=== PATIENT | female | born 1975 | race Caucasian/White ===

== ENCOUNTER 2017-02-07 20:01 | Emergency (ER) | payer BC, OTHER ==
[~2017-02-07] VITALS: Ht 180.3 cm; Wt 104.3 kg
[~2017-02-07 20:01] MED LIST: DULO30CA PO; FLUO20CA25 PO; LORA1TAB PO
[2017-02-07] MEDS ORDERED: ASPIRIN 81 MG CHEW (CHILDREN'S ASA) PO ONE (20:30)
[2017-02-07] MEDS ORDERED: RX-NITROGLYCERIN 0.4 MG TAB BTL 25'S SL ONE (20:30)
[2017-02-07 20:34] LABS: BASOPHILS % (AUTO) 1 % (0-10); EOSINOPHILS # (AUTO) 0.1 10^3/uL (0.0-0.3); EOSINOPHILS % (AUTO) 2 % (0-10); LYMPHOCYTES # (AUTO) 2.8 X 10^3 (1.0-4.0); LYMPHOCYTES % (AUTO) 43 % (12-44); MEAN CORPUSCULAR HEMOGLOBIN 28 PG (25-34); MEAN CORPUSCULAR HGB CONC 33 G/DL (32-36); MEAN CORPUSCULAR VOLUME 85 FL (80-99); MEAN PLATELET VOLUME 11.4 FL (7.4-10.4); MONOCYTES # (AUTO) 0.7 X 10^3 (0.0-1.0); MONOCYTES % (AUTO) 11 % (0-12); NEUTROPHILS # (AUTO) 2.8 X 10^3 (1.8-7.8); NEUTROPHILS % (AUTO) 43 % (42-75); PLATELET COUNT 258 10^3/uL (130-400); RED BLOOD COUNT 5.13 10^6/uL (4.35-5.85); RED CELL DISTRIBUTION WIDTH 13.4 % (10.0-14.5); WHITE BLOOD COUNT 6.5 10^3/uL (4.3-11.0)
[2017-02-07 20:47] LABS: PROTHROMBIN TIME PATIENT 13.3 SEC (12.2-14.7)
[2017-02-07 20:58] LABS: ALANINE AMINOTRANSFERASE 71 U/L (0-55); ALBUMIN 4.5 G/DL (3.2-4.5); ANION GAP 14 MMOL/L (5-14); ASPARTATE AMINO TRANSFERASE 64 U/L (5-34); BILIRUBIN,TOTAL 0.7 MG/DL (0.1-1.0); BLOOD UREA NITROGEN 11 MG/DL (7-18); BUN/CREATININE RATIO 13; CALCIUM 9.7 MG/DL (8.5-10.1); CARBON DIOXIDE 23 MMOL/L (21-32); CHLORIDE 104 MMOL/L (98-107); CREATININE SERUM 0.88 MG/DL (0.60-1.30); GFR ESTIMATED > 60; GLUCOSE 95 MG/DL (70-105); POTASSIUM 3.7 MMOL/L (3.6-5.0); SODIUM 141 MMOL/L (135-145); TOTAL PROTEIN 8.1 G/DL (6.4-8.2)
--- NOTE | 2017-02-07 20:59 | Diagnostic Imaging Report ---
INDICATION: Left arm pain and chest pain. EXAMINATION: Frontal chest was obtained at 8:47 p.m. FINDINGS: Heart and mediastinal silhouette are normal in appearance. The lungs are clear. There is no pneumothorax or pleural fluid. IMPRESSION: Negative chest. Dictated by: Dictated on workstation # [id number]
[2017-02-07 21:04] LABS: MYOGLOBIN SERUM 24.7 NG/ML (10.0-92.0)
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
[2017-02-08 01:37] VITALS: BP 131/95
== END 2017-02-08 01:37 | disposition home or self-care (01) ==
LOC: EDUNIT# 20:01 → ER 20:03
DX: M79.602 Pain in left arm (principal); R74.0 Nonspecific elevation of levels of transaminase and lactic acid dehydrogenase [LDH]; F41.9 Anxiety disorder, unspecified
CPT/HCPCS: 36415; 71010; 80053; 83735; 83874; 84484; 85025; 85610; 85730; 93005; 93041

== ENCOUNTER → 2017-03-01 | Outpatient (CLI) | payer BC ==
--- NOTE | 2017-03-01 14:42 | ECHOCARDIOGRAPHY REPORT ---
DATE OF SERVICE: 03/01/2017 PRIMARY PHYSICIAN: Ernie Cha MD DIAGNOSIS: Chest pain. FINDINGS: 1. Sinus rhythm. 2. Left atrial dimensions are normal. 3. Aortic root dimensions are normal. 4. Left ventricular systolic function is normal. Left ventricular ejection fraction is 55 to 60%. No LVH is present. 5. There is no wall motion abnormality. 6. Normal right heart dimensions. Normal RV systolic function. 7. No evidence of pericardial effusion. 8. Normal diastolic function. 9. Normal IVC. VALVULAR STRUCTURE OF THE HEART: Mild tricuspid regurgitation with RVSP of 17 mmHg. Normal aortic valve with no regurgitation or stenosis. Normal mitral valve with no significant regurgitation or stenosis. Mild to moderate pulmonic regurgitation. CONCLUSION: 1. LV and RV size and function is normal. 2. LVEF is 55 to 60%. 3. Normal PA pressure. 4. Mild to moderate pulmonic regurgitation. Job ID: [id number] DocumentID: [id number] Dictated Date: 03/01/2017 10:48:38 [employer] Agent Date: 03/01/2017 14:05:55 Dictated By: LOLY PARKER MD
== END ==
LOC: CARD 08:21
PROVIDERS: ATTEND Internal Medicine Interventional Cardiology
DX: R07.9 Chest pain, unspecified (principal)
CPT/HCPCS: 93017; 93306

== ENCOUNTER → 2018-02-25 | Outpatient (CLI) | payer BC ==
[~2018-02-25] MED LIST changes: +CEFD300C3 PO; +PHEN-640 PO
--- NOTE | 2018-02-25 15:32 | Diagnostic Imaging Report ---
INDICATION: Routine screening. COMPARISON: 11/24/2011. TECHNIQUE: Bilateral CC and MLO 3D mammography was performed. The current study was also evaluated with a Computer Aided Detection (CAD) system. FINDINGS: Scattered fibroglandular densities are identified bilaterally. No discrete mass or malignant appearing microcalcifications are identified. The axillae are unremarkable. IMPRESSION: No mammographic features suspicious for malignancy are identified. ACR BI-RADS Category 1: Negative. Result letter will be mailed to the patient. Note: At least 10% of breast cancer is not imaged by mammography. Dictated by: Dictated on workstation # [id number]
== END ==
LOC: RAD 09:57
PROVIDERS: ATTEND Family Medicine
DX: Z12.31 Encounter for screening mammogram for malignant neoplasm of breast (principal)
CPT/HCPCS: 77067

== ENCOUNTER 2020-04-03 21:32 | Emergency (ER) | payer SELFPAY ==
[~2020-04-03] VITALS: Ht 177 cm; Wt 113.0 kg
[2020-04-03] MEDS ORDERED: ACETAMINOPHEN 500 MG TAB (TYLENOL) PO ONE (22:15)
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
[2020-04-03 23:08] VITALS: BP 131/85
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
--- NOTE | 2020-04-04 08:31 | Diagnostic Imaging Report ---
INDICATION: Pain. 3 views of the right wrist were obtained. FINDINGS: The alignment is normal. There is no fracture or dislocation. Soft tissues are unremarkable. IMPRESSION: No acute fracture or dislocation. Dictated by: Dictated on workstation # [id number]
== END 2020-04-03 23:17 | disposition home or self-care (01) ==
LOC: EDUNIT# 21:32 → ER 21:33
DX: S20.219A Contusion of unspecified front wall of thorax, initial encounter (principal); S63.501A Unspecified sprain of right wrist, initial encounter; F41.9 Anxiety disorder, unspecified; F32.9 Major depressive disorder, single episode, unspecified; R40.2142 Coma scale, eyes open, spontaneous, at arrival to emergency department; R40.2252 Coma scale, best verbal response, oriented, at arrival to emergency department; R40.2362 Coma scale, best motor response, obeys commands, at arrival to emergency department; V86.09XA Driver of other special all-terrain or other off-road motor vehicle injured in traffic accident, initial encounter
CPT/HCPCS: 71046; 73110; 93005

== ENCOUNTER 2020-12-16 21:57 | Emergency (ER) | payer OTHER ==
[~2020-12-16] VITALS: Ht 180.3 cm; Wt 108.0 kg
[2020-12-16] MEDS ORDERED: KETOROLAC 30 MG/ML VIAL IVP STA (22:13)
[2020-12-16 22:26] LABS: BASOPHILS # (AUTO) 0.1 10^3/uL (0.0-0.1); BASOPHILS % (AUTO) 1 % (0-10); EOSINOPHILS # (AUTO) 0.3 10^3/uL (0.0-0.3); EOSINOPHILS % (AUTO) 3 % (0-10); HEMATOCRIT 44 % (35-52); HEMOGLOBIN 14.3 g/dL (11.5-16.0); LYMPHOCYTES # (AUTO) 2.6 10^3/uL (1.0-4.0); LYMPHOCYTES % (AUTO) 34 % (12-44); MEAN CORPUSCULAR HEMOGLOBIN 28 pg (25-34); MEAN CORPUSCULAR HGB CONC 33 g/dL (32-36); MEAN CORPUSCULAR VOLUME 86 fL (80-99); MEAN PLATELET VOLUME 11.5 fL (9.0-12.2); MONOCYTES # (AUTO) 0.6 10^3/uL (0.0-1.0); MONOCYTES % (AUTO) 8 % (0-12); NEUTROPHILS # (AUTO) 4.2 10^3/uL (1.8-7.8); NEUTROPHILS % (AUTO) 55 % (42-75); PLATELET COUNT 277 10^3/uL (130-400); WHITE BLOOD COUNT 7.7 10^3/uL (4.3-11.0)
[2020-12-16] MEDS ORDERED: CIPROFLOXACIN IV 400MG/200ML 200 ML IV ONE (22:30)
[2020-12-16 22:34] LABS: CHLORIDE 105 MMOL/L (98-107); SODIUM 138 MMOL/L (135-145)
[2020-12-16 22:35] LABS: ALBUMIN 4.4 GM/DL (3.2-4.5)
[2020-12-16 22:37] LABS: TOTAL PROTEIN 8.1 GM/DL (6.4-8.2)
[2020-12-16 22:38] LABS: CARBON DIOXIDE 22 MMOL/L (21-32); GLUCOSE 115 MG/DL (70-105)
[2020-12-16 22:39] LABS: BILIRUBIN,TOTAL 0.3 MG/DL (0.1-1.0)
[2020-12-16 22:41] LABS: ALKALINE PHOSPHATASE 165 U/L (40-136)
[2020-12-16 22:42] LABS: CREATININE SERUM 0.94 MG/DL (0.60-1.30); GFR ESTIMATED > 60
[2020-12-16 22:43] LABS: BUN/CREATININE RATIO 11
[2020-12-16 22:44] LABS: ALANINE AMINOTRANSFERASE 38 U/L (0-55)
--- NOTE | 2020-12-16 22:51 | ED EENT ---
History of Present Illness General Chief Complaint: Ear Problems Stated Complaint: DX CELLULITIS R EAR / PAIN Source: patient History of Present Illness Date Seen by Provider: Dec 16, 2020 Time Seen by Provider: 22:08 Initial Comments PT ARRIVES VIA POV FROM HOME C/O RIGHT EAR PAIN X 1 WEEK EXTERNAL EAR IS RED AND SWOLLEN AND HAS PAIN BEHIND RIGHT EAR WELL. NO FEVER NO DRAINAGE FROM EAR NO URI SYMPTOMS NO INJURY OR RECENT PIERCING NO HISTORY OF SIMILAR PT IS NOT DIABETIC NO RECENT SWIMMING, ETC. SEEN AT [facility] ON Sunday12/14/20 FOR THIS PROBLEM AND GIVEN RX FOR BACTRIM AND CIPRO OTIC DROPS. WAS TOLD IF NOT BETTER IN 24 HOURS SHE NEEDED TO GO TO ER, SO ARRIVES IN ER TONIGHT. SYMPTOMS ARE GETTING WORSE, NO IMPROVEMENT ON ANTIBIOTICS. LMP 11/22/20 PCP: DR. HOBSON. ALSO GOES TO [facility] Allergies and Home Medications Allergies Coded Allergies: codeine (Verified Allergy, Unknown, 12/16/20) Home Medications Cefdinir 300 Mg Capsule, 300 MG PO BID Prescribed by: ASHLEY MORRIS on 10/01/172237 Ciprofloxacin HCl 750 Mg Tablet, 750 MG PO BID Prescribed by: MAURICE LEE on 12/16/20 2347 Duloxetine Hcl 30 Mg Capsule.dr, 30 MG PO DAILY, (Reported) Fluoxetine Hcl 20 Mg Capsule, 20 MG PO DAILY, (Reported) Ketorolac Tromethamine 10 Mg Tablet, 10 MG PO Q6H Prescribed by: MAURICE LEE on 12/16/20 2351 Lorazepam 1 Mg Tablet, 1 MG PO TID PRN, (Reported) PRN FOR ANXIETY Phenazopyridine HCl 200 Mg Tablet, 1 TAB PO Q8H PRN for SPASMS Prescribed by: ASHLEY MORRIS on 10/01/172237 Patient Home Medication List Home Medication List Reviewed: Yes Review of Systems Review of Systems Constitutional: no symptoms reported; No chills, No fever Eyes: No Symptoms Reported Ears: See HPI, Pain Nose: no symptoms reported; denies congestion Mouth: no symptoms reported Throat: no symptoms reported Respiratory: no symptoms reported Cardiovascular: no symptoms reported Gastrointestinal: no symptoms reported Musculoskeletal: no symptoms reported Skin: see HPI Neurological: No Symptoms Reported Hematologic/Lymphatic: No Symptoms Reported Immunological/Allergic: no symptoms reported Past Htpxcbf-Nvhtan-Urviac Hx Past Med/Social Hx: Reviewed and Corrections made Patient Social History Alcohol Use: Denies Use Drug of Choice: DENIES Smoking Status: Never a Smoker 2nd Hand Smoke Exposure: No Recent Hopitalizations: No Immunizations Up To Date Tetanus Booster (TDap): Unknown Date of Influenza Vaccine: Oct 29, 2012 Seasonal Allergies Seasonal Allergies: No Past Medical History Surgeries: Yes (PYELOPLASTY LEFT KIDNEY; X 2) Section, Gallbladder, Renal Respiratory: No Cardiac: No Neurological: No Reproductive Disorders: No Female Reproductive Disorders: Denies Sexually Transmitted Disease: No HIV/AIDS: No Genitourinary: Yes (S/P LEFT PYELOPLASTY) UTI (peds) Gastrointestinal: Yes (S/P CHOLECYSTECTOMY) Gall Bladder Disease Musculoskeletal: No Endocrine: No HEENT: No Cancer: No Psychosocial: Yes Anxiety, Depression Integumentary: No Blood Disorders: No Adverse Reaction/Blood Tranf: No Family Medical History No Pertinent Family Hx Physical Exam Vital Signs Vital Signs - First Documented 12/16/20 22:07 Temp 36.4 Pulse 92 Resp 18 B/P (MAP) 152/92 (112) Pulse Ox 96 Height, Weight, BMI Height: 5'11.00" Weight: 230lbs. 4.2oz. 104.946856zi; 36.00 BMI Method:Stated General Appearance: WD/WN, no apparent distress Eyes: bilateral eye normal inspection, bilateral eye PERRL, bilateral eye EOMI Ears: right ear other (RIGHT EXTERNAL EAR--ESPECIALLY TOP HALF--WITH MODERATE SWELLING, VERY ERYTHEMATOUS AND TENDER. MASTOID AREA SLIGHTLY SWOLLING AND FAINT ERYTHEMA AND TENDER. RIGHT EAC IS SLIGHTLY SWOLLEN AND ERYTYHEMATOUNS. NO DISCHARGE. RIGHT TM IS CLEAR. 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, no motor/sensory deficits, alert, normal mood/affect, oriented x 3 Skin: normal color, warm/dry, other ( ABOVE) Progress/Results/Core Measures Results/Orders Lab Results Laboratory Tests Test 12/16/20 22:10 12/16/20 23:32 Range/Units White Blood Count 7.7 4.3-11.0 10^3/uL Red Blood Count 5.11 3.80-5.11 10^6/uL Hemoglobin 14.3 11.5-16.0 g/dL Hematocrit 44 35-52 % Mean Corpuscular Volume 86 80-99 fL Mean Corpuscular Hemoglobin 28 25-34 pg Mean Corpuscular Hemoglobin Concent 33 32-36 g/dL Red Cell Distribution Width 12.8 10.0-14.5 % Platelet Count 277 130-400 10^3/uL Mean Platelet Volume 11.5 9.0-12.2 fL Immature Granulocyte % (Auto) 0 % Neutrophils (%) (Auto) 55 42-75 % Lymphocytes (%) (Auto) 34 12-44 % Monocytes (%) (Auto) 8 0-12 % Eosinophils (%) (Auto) 3 0-10 % Basophils (%) (Auto) 1 0-10 % Neutrophils # (Auto) 4.2 1.8-7.8 10^3/uL Lymphocytes # (Auto) 2.6 1.0-4.0 10^3/uL Monocytes # (Auto) 0.6 0.0-1.0 10^3/uL Eosinophils # (Auto) 0.3 0.0-0.3 10^3/uL Basophils # (Auto) 0.1 0.0-0.1 10^3/uL Immature Granulocyte # (Auto) 0.0 0.0-0.1 10^3/uL Sodium Level 138 135-145 MMOL/L Potassium Level 4.0 3.6-5.0 MMOL/L Chloride Level 105 98-107 MMOL/L Carbon Dioxide Level 22 21-32 MMOL/L Anion Gap 11 5-14 MMOL/L Blood Urea Nitrogen 10 7-18 MG/DL Creatinine 0.94 0.60-1.30 MG/DL Estimat Glomerular Filtration Rate > 60 BUN/Creatinine Ratio 11 Glucose Level 115 H 70-105 MG/DL Calcium Level 10.0 8.5-10.1 MG/DL Corrected Calcium 9.7 8.5-10.1 MG/DL Total Bilirubin 0.3 0.1-1.0 MG/DL Aspartate Amino Transf (AST/SGOT) 34 5-34 U/L Alanine Aminotransferase (ALT/SGPT) 38 0-55 U/L Alkaline Phosphatase 165 H 40-136 U/L Total Protein 8.1 6.4-8.2 GM/DL Albumin 4.4 3.2-4.5 GM/DL Procalcitonin 0.01 <0.10 NG/ML Serum Test, Qualitative NEGATIVE NEGATIVE Lactic Acid Level 1.18 0.50-2.00 MMOL/L My Orders Orders - MAURICE LEE DO Ed Iv/Invasive Line Start (12/16/20 22:13) Ct Head Wo (12/16/20 22:13) Cbc With Automated Diff (12/16/20 22:13) Comprehensive Metabolic Panel (12/16/20 22:13) Hcg,Qualitative Serum (12/16/20 22:13) Lactic Acid Analyzer (12/16/20 22:13) Procalcitonin (Pct) (12/16/20 22:13) Blood Culture (12/16/20 22:13) Ketorolac Injection (Toradol Injection) (12/16/20 22:13) Ciprofloxacin Iv 400mg/200ml (Cipro Iv S (12/16/20 22:30) Medications Given in ED Current Medications Medications Dose Ordered Sig/Donato Route Start Time Stop Time Status Last Admin Dose Admin Ciprofloxacin/ Dextrose 200 ml @ 200 mls/hr ONCE ONCE IV 12/16/20 22:30 12/16/20 23:29 DC 12/16/20 22:34 200 MLS/HR Vital Signs/I&O 12/16/20 12/16/20 22:07 23:55 Temp 36.4 Pulse 92 88 Resp 18 18 B/P (MAP) 152/92 (112) 133/82 Pulse Ox 96 95 12/17/20 00:00 Intake Total 200 ml Balance 200 ml Progress Progress Note : Progress Note GIVEN TORADOL AND CIPRO IV NO DETERIORATION IN PT'S CONDITION DURING ER STAY Diagnostic Imaging Comments CT HEAD--SOFT TISSUE SWELLING OF RIGHT EXTERNAL EAR AND ADJACENT FACT STRANDING CONSISTENT WITH OTITIS EXTERNA. NO ACUTE INTRACRANIAL FINDINGS. MASTOID AREA AND MIDDLE EAR AREA ARE CLEAR. Departure Impression Primary Impression: Otitis externa of right ear Disposition: HOME, SELF-CARE Condition: Stable Departure-Patient Inst. Referrals: ÁLVARO HOBSON MD (PCP/Family) Primary Care Physician Patient Instructions: Outer Ear Infection (DC) Add. Discharge Instructions: INCREASE CIPRO DROPS TO 4 DROPS TWICE A DAY TYLENOL 1 GRAM 4 TIMES A DAY NEEDED FOR PAIN OR FEVER FOLLOW UP WITH YOUR DR ON SUNDAY FOR RECHECK RETURN TO ER IF SYMPTOMS WORSEN--SUCH FEVER, INCREASED PAIN, REDNESS AND SWELLING OR ANY NEW SYMPTOMS All discharge instructions reviewed with patient and/or family. Voiced understanding. Scripts Ketorolac Tromethamine (Ketorolac Tromethamine) 10 Mg Tablet 10 MG PO Q6H for Pain, #15 TAB Prov: MAURICE LEE DO 12/16/20 Ciprofloxacin HCl (Ciprofloxacin HCl) 750 Mg Tablet 750 MG PO BID, #20 TAB Prov: MAURICE LEE DO 12/16/20 MAURICE LEE DO Dec 16, 2020 22:51
[2020-12-16] MEDS ORDERED: CIPR750T4 PO (23:47)
[2020-12-16] MEDS ORDERED: KETO10TA PO (23:51)
[2020-12-16 23:55] VITALS: BP 133/82
--- NOTE | 2020-12-17 06:10 | Diagnostic Imaging Report ---
PROCEDURE: CT head without contrast. TECHNIQUE: Multiple contiguous axial images were obtained through the brain without the use of intravenous contrast. Auto Exposure Controls were utilized during the CT exam to meet ALARA standards for radiation dose reduction. INDICATION: Otitis externa. CT HEAD: CT images of the head were obtained. FINDINGS: Ventricles and sulci are within normal limits for size. There is no intracranial hemorrhage identified. There is no abnormal mass effect or shift of midline structures. There is thickening of the skin and adjacent tissue surrounding the right external auditory canal. There is no evidence of involvement of middle ear cavities or mastoid air cells. IMPRESSION: Findings are compatible with right external auditory canal region cellulitis. No definite drainable abscess is identified and there is no evidence of intracranial abnormality. Dictated by: Dictated on workstation # [id number]
== END 2020-12-17 | disposition home or self-care (01) ==
LOC: EDUNIT# 21:57 → ER 21:59
DX: H60.91 Unspecified otitis externa, right ear (principal); F32.9 Major depressive disorder, single episode, unspecified; F41.9 Anxiety disorder, unspecified; Z88.5 Allergy status to narcotic agent
CPT/HCPCS: 36415; 70450; 80053; 83605; 84145; 84703; 85025; 87040

== ENCOUNTER 2021-01-22 21:40 | Emergency (ER) | payer OTHER ==
[~2021-01-22] VITALS: Ht 180 cm; Wt 113.0 kg
[~2021-01-22 21:40] MED LIST changes: +CIPR750T4 PO; +KETO10TA PO
[2021-01-22] MEDS ORDERED: KETOROLAC 30 MG/ML VIAL IVP ONE (22:00)
[2021-01-22] MEDS ORDERED: ORPHENADRINE 60 MG/2 ML (NORFLEX) AMP (ED ONLY) IV ONE (22:00)
[2021-01-22] MEDS ORDERED: fentaNYL INJ 100 MCG/2 ML AMP IVP ONE (22:00)
--- NOTE | 2021-01-22 22:02 | ED Back Pain ---
General Chief Complaint: Back Problems Stated Complaint: LOWER BACK PAIN Source of Information: Patient Exam Limitations: No Limitations (JORGE JOHN APRN) History of Present Illness Date Seen by Provider: Jan 22, 2021 Time Seen by Provider: 21:57 Initial Comments To ER with sudden onset midline low back pain that radiates down the right leg. This began 3 hours ago while getting out of a car. No loss of bowel or bladder control. No numbness of the genitals. No history of cancer no IV drug use no fevers or chills no falls or preceding trauma. She has a history of kidney troubles treated with pyeloplasty several years ago. Location: Lumbar Spine, Paraspinous Muscles Severity: Moderate Method of Injury: Unknown Associated Symptoms: lower back pain (JORGE JOHN APRN) Allergies and Home Medications Allergies Coded Allergies: codeine (Verified Allergy, Unknown, 12/16/20) Home Medications Cefdinir 300 Mg Capsule, 300 MG PO BID Prescribed by: ASHLEY MORRIS on 10/01/172237 Ciprofloxacin HCl 750 Mg Tablet, 750 MG PO BID Prescribed by: MAURICE LEE on 12/16/20 2347 Duloxetine Hcl 30 Mg Capsule.dr, 30 MG PO DAILY, (Reported) Fluoxetine Hcl 20 Mg Capsule, 20 MG PO DAILY, (Reported) Hydrocodone/Acetaminophen 1 Each Tablet, 1 TAB PO Q4H PRN for PAIN-MODERATE (5- 7) Prescribed by: JORGE JOHN on 01/22/212205 Ketorolac Tromethamine 10 Mg Tablet, 10 MG PO Q6H Prescribed by: MAURICE LEE on 12/16/20 2351 Lorazepam 1 Mg Tablet, 1 MG PO TID PRN, (Reported) PRN FOR ANXIETY Ondansetron 8 Mg Tab.rapdis, 8 MG PO Q6H PRN for NAUSEA/VOMITING Prescribed by: JORGE JOHN on 01/22/212204 Phenazopyridine HCl 200 Mg Tablet, 1 TAB PO Q8H PRN for SPASMS Prescribed by: ASHLEY MORRIS on 10/01/172237 Prednisone 20 Mg Tab, 40 MG PO DAILY Prescribed by: JORGE JOHN on 01/22/212204 Patient Home Medication List Home Medication List Reviewed: Yes (JORGE JOHN APRN) Review of Systems Constitutional: see HPI; No chills, No fever EENTM: see HPI Respiratory: no symptoms reported Cardiovascular: no symptoms reported Genitourinary: no symptoms reported Musculoskeletal: see HPI, back pain Skin: no symptoms reported Psychiatric/Neurological: No Symptoms Reported (JORGE JOHN APRN) Past Ubbonyj-Juuoco-Dcipbe Hx Patient Social History Drug of Choice: DENIES 2nd Hand Smoke Exposure: No Recent Hopitalizations: No (JORGE JOHN APRN) Immunizations Up To Date Tetanus Booster (TDap): Unknown Date of Influenza Vaccine: Oct 29, 2012 (JORGE JOHN APRN) Seasonal Allergies Seasonal Allergies: No (JORGE JOHN APRN) Past Medical History Surgeries: Yes (PYELOPLASTY LEFT KIDNEY; X 2) Section, Gallbladder, Renal Respiratory: No Cardiac: No Neurological: No Reproductive Disorders: No Female Reproductive Disorders: Denies Sexually Transmitted Disease: No HIV/AIDS: No Genitourinary: Yes (S/P LEFT PYELOPLASTY) UTI (peds) Gastrointestinal: Yes (S/P CHOLECYSTECTOMY) Gall Bladder Disease Musculoskeletal: No Endocrine: No HEENT: No Cancer: No Psychosocial: Yes Anxiety, Depression Integumentary: No Blood Disorders: No Adverse Reaction/Blood Tranf: No (JORGE JOHN APRN) Family Medical History No Pertinent Family Hx (JORGE JOHN APRN) Physical Exam Vital Signs Capillary Refill : (JORGE JOHN APRN) Height, Weight, BMI Height: 5'11.00" Weight: 230lbs. 4.2oz. 104.286072kb; 33.00 BMI Method:Stated General Appearance: No Apparent Distress, WD/WN Neck: Full Range of Motion, Normal Inspection Respiratory: Normal Breath Sounds, No Accessory Muscle Use, No Respiratory Distress Gastrointestinal: Normal Bowel Sounds, Non Tender, Soft Back: No Vertebral Tenderness, Muscle Spasm Extremity: Normal Capillary Refill, Normal Inspection Neurologic/Psychiatric: Alert, Oriented x3 Skin: Normal Color, Warm/Dry (JORGE JOHN APRN) Progress/Results/Core Measures Results/Orders Lab Results Laboratory Tests Test 01/22/21 21:54 01/22/21 22:30 Range/Units White Blood Count 7.6 4.3-11.0 10^3/uL Red Blood Count 4.91 3.80-5.11 10^6/uL Hemoglobin 13.8 11.5-16.0 g/dL Hematocrit 44 35-52 % Mean Corpuscular Volume 89 80-99 fL Mean Corpuscular Hemoglobin 28 25-34 pg Mean Corpuscular Hemoglobin Concent 32 32-36 g/dL Red Cell Distribution Width 13.1 10.0-14.5 % Platelet Count 283 130-400 10^3/uL Mean Platelet Volume 11.3 9.0-12.2 fL Sodium Level 137 135-145 MMOL/L Potassium Level 4.1 3.6-5.0 MMOL/L Chloride Level 104 98-107 MMOL/L Carbon Dioxide Level 23 21-32 MMOL/L Anion Gap 10 5-14 MMOL/L Blood Urea Nitrogen 10 7-18 MG/DL Creatinine 0.78 0.60-1.30 MG/DL Estimat Glomerular Filtration Rate > 60 BUN/Creatinine Ratio 13 Glucose Level 131 H 70-105 MG/DL Calcium Level 9.4 8.5-10.1 MG/DL Serum Test, Qualitative NEGATIVE NEGATIVE Urine Color YELLOW Urine Clarity CLEAR Urine pH 6.0 5-9 Urine Specific [place] >=1.030 1.016-1.022 Urine Protein NEGATIVE NEGATIVE Urine Glucose (UA) NEGATIVE NEGATIVE Urine Ketones NEGATIVE NEGATIVE Urine Nitrite NEGATIVE NEGATIVE Urine Bilirubin NEGATIVE NEGATIVE Urine Urobilinogen 1.0 < = 1.0 MG/DL Urine Leukocyte Esterase NEGATIVE NEGATIVE Urine RBC (Auto) NEGATIVE NEGATIVE Urine RBC NONE /HPF Urine WBC RARE /HPF Urine Squamous Epithelial Cells 10-25 H /HPF Urine Crystals NONE /LPF Urine Bacteria MODERATE H /HPF Urine Casts NONE /LPF Urine Mucus NEGATIVE /LPF Urine Culture Indicated NO (FIDENCIO SAMSON) Medications Given in ED Current Medications Medications Dose Ordered Sig/Donato Route Start Time Stop Time Status Last Admin Dose Admin Dexamethasone Sodium Phosphate 10 mg ONCE ONCE IV 01/22/21 22:00 01/22/21 22:01 DC 01/22/21 22:08 10 MG Fentanyl Citrate 75 mcg ONCE ONCE IVP 01/22/21 22:00 01/22/21 22:01 DC 01/22/21 22:08 75 MCG Ketorolac Tromethamine 15 mg ONCE ONCE IVP 01/22/21 22:00 01/22/21 22:01 DC 01/22/21 22:07 15 MG Orphenadrine Citrate 30 mg ONCE ONCE IV 01/22/21 22:00 01/22/21 22:01 DC 01/22/21 22:08 30 MG (FIDENCIO SAMSON) Progress Progress Note : Time: 23:19 Progress Note Assumed care of the patient after shift change from Jorge John and I agree with above documented physical exam and history. The patient's feeling much better after her intervention and ready to go home. Urinalysis unremarkable. No CVA tenderness. She does appear to have a radiculopathy probably related to her sciatica and back pain. (FIDENCIO SAMSON) Departure Impression Primary Impression: Lumbar radiculopathy Disposition: HOME, SELF-CARE Condition: Stable Departure-Patient Inst. Decision time for Depature: 22:03 (JORGE JOHN APRN) Referrals: ÁLVARO HOBSON MD (PCP/Family) Primary Care Physician Patient Instructions: Radiculopathy (DC) Add. Discharge Instructions: 1. If this pain fails to improve, call Dr. Hobson on Sunday to make an appointment to be seen for follow-up. All discharge instructions reviewed with patient and/or family. Voiced understanding. Scripts Ondansetron (Ondansetron Odt) 8 Mg Tab.rapdis 8 MG PO Q6H PRN for NAUSEA/VOMITING, #10 TAB Prov: JORGE JOHN APRN 01/22/21 Prednisone (Prednisone) 20 Mg Tab 40 MG PO DAILY, #6 TAB 0 Refills Prov: JORGE JOHN APRN 01/22/21 Hydrocodone/Acetaminophen (Hydrocodone-Acetamin 5-325 mg) 1 Each Tablet 1 TAB PO Q4H PRN for PAIN-MODERATE (5-7), #14 TAB Prov: JORGE JOHN APRN 01/22/21 Copy Copies To 1: ÁLVARO HOBSON MD, PETER J APRN Jan 22, 2021 22:02 FIDENCIO SAMSON Jan 22, 2021 23:20
[2021-01-22 22:05] LABS: HEMOGLOBIN 13.8 g/dL (11.5-16.0); MEAN PLATELET VOLUME 11.3 fL (9.0-12.2); WHITE BLOOD COUNT 7.6 10^3/uL (4.3-11.0)
[2021-01-22] MEDS ORDERED: PRD20T PO (22:05)
[2021-01-22] MEDS ORDERED: ACHD5005 PO (22:05)
[2021-01-22] MEDS ORDERED: ONDA8TAB13 PO (22:05)
[2021-01-22 22:07] LABS: CHLORIDE 104 MMOL/L (98-107); POTASSIUM 4.1 MMOL/L (3.6-5.0); SODIUM 137 MMOL/L (135-145)
[2021-01-22 22:08] LABS: CALCIUM 9.4 MG/DL (8.5-10.1); GLUCOSE 131 MG/DL (70-105)
[2021-01-22 22:10] LABS: CARBON DIOXIDE 23 MMOL/L (21-32)
[2021-01-22 22:12] LABS: CREATININE SERUM 0.78 MG/DL (0.60-1.30); GFR ESTIMATED > 60
[2021-01-22 22:13] LABS: BUN/CREATININE RATIO 13
[2021-01-22 22:37] LABS: BILIRUBIN,URINE NEGATIVE (NEGATIVE); CLARITY,URINE CLEAR; COLOR,URINE YELLOW; GLUCOSE, URINE (UA) NEGATIVE (NEGATIVE); KETONES,URINE NEGATIVE (NEGATIVE); LEUKOCYTE ESTERASE ,URINE NEGATIVE (NEGATIVE); NITRITE,URINE NEGATIVE (NEGATIVE); PROTEIN,URINE NEGATIVE (NEGATIVE)
[2021-01-22 22:43] LABS: BACTERIA,URINE MODERATE /HPF; WBC,URINE RARE /HPF
[2021-01-22 23:29] VITALS: BP 130/78
== END 2021-01-22 23:31 | disposition home or self-care (01) ==
LOC: EDUNIT# 21:40 → ER 21:42
DX: M54.16 Radiculopathy, lumbar region (principal); F32.9 Major depressive disorder, single episode, unspecified; F41.9 Anxiety disorder, unspecified; Z88.5 Allergy status to narcotic agent; Z79.52 Long term (current) use of systemic steroids
CPT/HCPCS: 36415; 80048; 81000; 84703; 85027

== ENCOUNTER → 2021-08-05 | Outpatient (CLI) | payer OTHER ==
[~2021-08-05] MED LIST changes: +ACHD5005 PO; +ONDA8TAB13 PO; +PRD20T PO
--- NOTE | 2021-08-08 11:31 | Diagnostic Imaging Report ---
INDICATION: Routine screening. Comparison is made with prior mammogram from 02/25/2018. 2-D and 3-D bilateral screening mammography was performed with CAD. Scattered fibroglandular densities are identified bilaterally. The parenchymal pattern is stable. No mass or malignant-appearing microcalcifications are seen. Axillae are unremarkable. IMPRESSION: BI-RADS Category 1 No mammographic features suspicious for malignancy are identified. ACR BI-RADS Category 1: Negative. Result letter will be mailed to the patient. Note: At least 10% of breast cancer is not imaged by mammography. Dictated by: Dictated on workstation # [id number]
== END ==
LOC: RAD 09:19
PROVIDERS: ATTEND Family Medicine
DX: Z12.31 Encounter for screening mammogram for malignant neoplasm of breast (principal)
CPT/HCPCS: 77063; 77067

== ENCOUNTER → 2021-09-02 | Outpatient (CLI) | payer OTHER ==
--- NOTE | 2021-09-02 09:24 | Diagnostic Imaging Report ---
PROCEDURE: US Thyroid. TECHNIQUE: Multiple real-time grayscale images were obtained of the thyroid in various projections. INDICATION: Idalmis's thyroiditis COMPARISON: None available. FINDINGS: Right thyroid lobe: The right thyroid lobe measures 4.1 x 1.8 x 1.0 cm. It has diffuse heterogeneous echogenicity and increased vascularity. No nodule. Isthmus: The thyroid isthmus measures 0.4 cm and is heterogeneous. Left thyroid lobe: The left thyroid lobe measures 4.7 x 1.8 x 1.5 cm. It has diffuse heterogeneous echogenicity and increased vascularity. No nodule. IMPRESSION:Diffusely heterogeneous thyroid with increased vascularity is most compatible with a subacute thyroiditis, compatible with patient's reported Idalmis's. ACR TI-RADS: Not applicable, as only used to describe lesions. Dictated by: Dictated on workstation # [id number]
== END ==
LOC: RAD 08:00
PROVIDERS: ATTEND Internal Medicine Endocrinology, Diabetes & Metabolism
DX: E06.3 Autoimmune thyroiditis (principal); E55.9 Vitamin D deficiency, unspecified
CPT/HCPCS: 76536

== ENCOUNTER 2021-11-24 09:34 | Emergency (ER) | payer OTHER ==
[~2021-11-24] VITALS: Ht 180 cm; Wt 89.0 kg
[2021-11-24] MEDS ORDERED: NS IV 1000 ML 1,000 ML ONE (10:07)
[2021-11-24] MEDS ORDERED: LACTATED RINGERS 1,000 ML IV STA (10:12)
[2021-11-24 10:27] LABS: BASOPHILS % (AUTO) 0 % (0-10); HEMOGLOBIN 13.5 g/dL (11.5-16.0); MEAN CORPUSCULAR HEMOGLOBIN 28 pg (25-34)
[2021-11-24 10:29] LABS: ALBUMIN 3.8 GM/DL (3.2-4.5); EOSINOPHILS # (AUTO) 0.1 10^3/uL (0.0-0.3); EOSINOPHILS % (AUTO) 2 % (0-10); HEMATOCRIT 43 % (35-52); LYMPHOCYTES # (AUTO) 1.2 10^3/uL (1.0-4.0); LYMPHOCYTES % (AUTO) 29 % (12-44); MEAN CORPUSCULAR HGB CONC 32 g/dL (32-36); MEAN CORPUSCULAR VOLUME 89 fL (80-99); MEAN PLATELET VOLUME 11.7 fL (9.0-12.2); MONOCYTES # (AUTO) 0.4 10^3/uL (0.0-1.0); MONOCYTES % (AUTO) 9 % (0-12); NEUTROPHILS # (AUTO) 2.5 10^3/uL (1.8-7.8); NEUTROPHILS % (AUTO) 59 % (42-75); PLATELET COUNT 135 10^3/uL (130-400); WHITE BLOOD COUNT 4.2 10^3/uL (4.3-11.0)
[2021-11-24 10:30] LABS: POTASSIUM 3.6 MMOL/L (3.6-5.0)
[2021-11-24 10:31] LABS: CALCIUM 8.8 MG/DL (8.5-10.1)
[2021-11-24 10:32] LABS: TOTAL PROTEIN 6.8 GM/DL (6.4-8.2)
[2021-11-24 10:34] LABS: BILIRUBIN,TOTAL 0.4 MG/DL (0.1-1.0)
--- NOTE | 2021-11-24 10:34 | ED General ---
General Chief Complaint: COVID19 Suspect/Confirmed Stated Complaint: COVID+ X1 WK,NAUSEA,DIZZINESS,SORE THROAT,FEVER Nursing Triage Note: PT AMB TO [facility] 9 WITH C/O FEVER, NAUSEA, BODY ACHES, AND HEADACHE. PT TESTED POSITIVE FOR COVID 7 DAYS AGO AT PSYCHIATRIC AND SYMPTOMS STARTED 8 DAYS AGO Source of Information: Patient Exam Limitations: No Limitations History of Present Illness Date Seen by Provider: Nov 24, 2021 Time Seen by Provider: 10:34 Initial Comments To ER with reports that she is Covid positive. She tested positive on 11/17/2021, symptoms began on 11/16/2021. She does not smoke. She is not vaccinated against Covid. Symptoms include fever nausea body aches headache. Timing/Duration: 1 Week Severity: Moderate Associated Systoms: Cough, Headaches, Nausea/Vomiting Allergies and Home Medications Allergies Coded Allergies: codeine (Verified Allergy, Unknown, 12/16/20) Patient Home Medication List Home Medication List Reviewed: Yes Cefdinir (Cefdinir) 300 Mg Capsule, 300 MG PO BID Prescribed by: ASHLEY MORRIS on 10/01/172237 Ciprofloxacin HCl (Ciprofloxacin HCl) 750 Mg Tablet, 750 MG PO BID Prescribed by: MAURICE LEE on 12/16/20 234 Duloxetine Hcl (Cymbalta) 30 Mg Capsule.dr, 30 MG PO DAILY, (Reported) Entered as Reported by: ILEANA HAMILTON on 11/17/122205 Fluoxetine Hcl (Fluoxetine Hcl) 20 Mg Capsule, 20 MG PO DAILY, (Reported) Entered as Reported by: ILEANA HAMILTON on 11/17/122205 Hydrocodone/Acetaminophen (Hydrocodone-Acetamin 5-325 mg) 1 Each Tablet, 1 TAB PO Q4H PRN for PAIN-MODERATE (5-7) Prescribed by: JORGE GONZALEZ on 01/22/212205 Ketorolac Tromethamine (Ketorolac Tromethamine) 10 Mg Tablet, 10 MG PO Q6H Prescribed by: MAURICE LEE on 12/16/20 235 Lorazepam (Ativan) 1 Mg Tablet, 1 MG PO TID PRN, (Reported) Entered as Reported by: ILEANA HAMILTON on 11/17/122205 Ondansetron (Ondansetron Odt) 8 Mg Tab.rapdis, 8 MG PO Q6H PRN for NAUSEA/VOMITING Prescribed by: JORGE GONZALEZ on 01/22/212204 Ondansetron (Ondansetron Odt) 8 Mg Tab.rapdis, 8 MG PO Q6H PRN for NAUSEA/VOMITING Prescribed by: JORGE GONZALEZ on 11/24/21 110 Phenazopyridine HCl (Pyridium) 200 Mg Tablet, 1 TAB PO Q8H PRN for SPASMS Prescribed by: ASHLEY MORRIS on 10/01/172237 Prednisone (Prednisone) 20 Mg Tab, 40 MG PO DAILY Prescribed by: JORGE GONZALEZ on 01/22/212204 Review of Systems Review of Systems Constitutional: see HPI, malaise, weakness EENTM: see HPI Respiratory: see HPI, cough, short of breath Cardiovascular: no symptoms reported Genitourinary: no symptoms reported Musculoskeletal: no symptoms reported Skin: no symptoms reported Psychiatric/Neurological: No Symptoms Reported, Other (Insomnia) Hematologic/Lymphatic: No Symptoms Reported Immunological/Allergic: no symptoms reported Past Zaydguq-Ssggfz-Tnmzba Hx Patient Social History Tobacco Use?: No Substance use?: No Alcohol Use?: No Pt feels they are or have been: No Immunizations Up To Date Tetanus Booster (TDap): Unknown Influenza Vaccine Up-to-Date: No; Not Current Seasonal Allergies Seasonal Allergies: No Past Medical History Surgery/Hospitalization HX: OCTAVIA, ANXIETY Surgeries: Yes (PYELOPLASTY LEFT KIDNEY; X 2) Section, Gallbladder, Renal Respiratory: No Cardiac: No Neurological: No Last Menstrual Period: Nov 05, 2021 Reproductive Disorders: No Female Reproductive Disorders: Denies Sexually Transmitted Disease: No HIV/AIDS: No Genitourinary: Yes (S/P LEFT PYELOPLASTY) UTI (peds) Gastrointestinal: Yes (S/P CHOLECYSTECTOMY) Gall Bladder Disease Musculoskeletal: No Endocrine: No HEENT: No Cancer: No Psychosocial: Yes Anxiety, Depression Integumentary: No Blood Disorders: No Adverse Reaction/Blood Tranf: No Family Medical History No Pertinent Family Hx Physical Exam Vital Signs Vital Signs - First Documented 11/24/21 09:45 Temp 37.0 Pulse 97 Resp 18 B/P (MAP) 116/75 (89) Pulse Ox 96 O2 Delivery Room Air Capillary Refill : Height, Weight, BMI Height: 5'11.00" Weight: 230lbs. 4.2oz. 104.680608ou; 27.00 BMI Method:Stated General Appearance: No Apparent Distress, WD/WN, Other (Oxygen 95 to 96 % on room air) Eyes: Bilateral Eye Normal Inspection, Bilateral Eye PERRL, Bilateral Eye EOMI HEENT: PERRL/EOMI, TMs Normal Neck: Full Range of Motion, Normal Inspection Respiratory: No Accessory Muscle Use, No Respiratory Distress Cardiovascular: Regular Rate, Rhythm, Normal Peripheral Pulses Gastrointestinal: Normal Bowel Sounds, Non Tender, Soft Back: No Vertebral Tenderness Extremity: Normal Capillary Refill, Normal Inspection Neurologic/Psychiatric: Alert, Oriented x3 Skin: Normal Color, Warm/Dry Progress/Results/Core Measures Suspected Sepsis SIRS Temperature: Pulse: 97 Respiratory Rate: 18 Laboratory Tests 11/24/21 10:10: White Blood Count 4.2L Blood Pressure 116 /75 Mean: 89 Laboratory Tests 11/24/21 10:10: Creatinine 0.65, Platelet Count 135, Total Bilirubin 0.4 Results/Orders Lab Results Laboratory Tests Test 11/24/21 10:10 11/24/21 10:47 Range/Units White Blood Count 4.2 L 4.3-11.0 10^3/uL Red Blood Count 4.81 3.80-5.11 10^6/uL Hemoglobin 13.5 11.5-16.0 g/dL Hematocrit 43 35-52 % Mean Corpuscular Volume 89 80-99 fL Mean Corpuscular Hemoglobin 28 25-34 pg Mean Corpuscular Hemoglobin Concent 32 32-36 g/dL Red Cell Distribution Width 12.8 10.0-14.5 % Platelet Count 135 130-400 10^3/uL Mean Platelet Volume 11.7 9.0-12.2 fL Immature Granulocyte % (Auto) 1 % Neutrophils (%) (Auto) 59 42-75 % Lymphocytes (%) (Auto) 29 12-44 % Monocytes (%) (Auto) 9 0-12 % Eosinophils (%) (Auto) 2 0-10 % Basophils (%) (Auto) 0 0-10 % Neutrophils # (Auto) 2.5 1.8-7.8 10^3/uL Lymphocytes # (Auto) 1.2 1.0-4.0 10^3/uL Monocytes # (Auto) 0.4 0.0-1.0 10^3/uL Eosinophils # (Auto) 0.1 0.0-0.3 10^3/uL Basophils # (Auto) 0.0 0.0-0.1 10^3/uL Immature Granulocyte # (Auto) 0.0 0.0-0.1 10^3/uL Percent Immature Platelet Fraction 7.6 0.0-7.6 % D-Dimer 0.79 H 0.00-0.49 UG/ML Sodium Level 138 135-145 MMOL/L Potassium Level 3.6 3.6-5.0 MMOL/L Chloride Level 104 98-107 MMOL/L Carbon Dioxide Level 25 21-32 MMOL/L Anion Gap 9 5-14 MMOL/L Blood Urea Nitrogen 7 7-18 MG/DL Creatinine 0.65 0.60-1.30 MG/DL Estimat Glomerular Filtration Rate 111 BUN/Creatinine Ratio 11 Glucose Level 109 H 70-105 MG/DL Calcium Level 8.8 8.5-10.1 MG/DL Corrected Calcium 9.0 8.5-10.1 MG/DL Total Bilirubin 0.4 0.1-1.0 MG/DL Aspartate Amino Transf (AST/SGOT) 80 H 5-34 U/L Alanine Aminotransferase (ALT/SGPT) 78 H 0-55 U/L Alkaline Phosphatase 242 H 40-136 U/L C-Reactive Protein High Sensitivity 1.01 H 0.00-0.50 MG/DL Total Protein 6.8 6.4-8.2 GM/DL Albumin 3.8 3.2-4.5 GM/DL Urine Color YELLOW Urine Clarity SL CLOUDY Urine pH 6.0 5-9 Urine Specific [place] 1.025 H 1.016-1.022 Urine Protein NEGATIVE NEGATIVE Urine Glucose (UA) NEGATIVE NEGATIVE Urine Ketones NEGATIVE NEGATIVE Urine Nitrite NEGATIVE NEGATIVE Urine Bilirubin NEGATIVE NEGATIVE Urine Urobilinogen 4.0 < = 1.0 MG/DL Urine Leukocyte Esterase NEGATIVE NEGATIVE Urine RBC (Auto) NEGATIVE NEGATIVE Urine RBC NONE /HPF Urine WBC NONE /HPF Urine Squamous Epithelial Cells 5-10 /HPF Urine Crystals NONE /LPF Urine Bacteria TRACE /HPF Urine Casts NONE /LPF Urine Mucus NEGATIVE /LPF Urine Culture Indicated NO My Orders Orders - JORGE GONZALEZ HARVESTER OPERATOR Iohexol Injection (Omnipaque 350 Mg/Ml 1 (11/24/21 10:45) Received Contrast (Hold Metformin- Contr (11/24/21 10:45) Ns (Ivpb) (Sodium Chloride 0.9% Ivpb Bag (11/24/21 10:45) Ketorolac Injection (Toradol Injection) (11/24/21 11:00) Ondansetron Injection (Zofran Injectio (11/24/21 11:00) Ct Angio Chest W (11/24/21 ) Medications Given in ED Current Medications Medications Dose Ordered Sig/Donato Route Start Time Stop Time Status Last Admin Dose Admin Iohexol 100 ml ONCE ONCE IV 11/24/21 10:45 11/24/21 10:46 DC 11/24/21 11:31 77 ML Ketorolac Tromethamine 15 mg ONCE ONCE IVP 11/24/21 11:00 11/24/21 11:01 DC 11/24/21 11:08 15 MG Ondansetron HCl 8 mg ONCE ONCE IVP 11/24/21 11:00 11/24/21 11:01 DC 11/24/21 11:08 8 MG Sodium Chloride 100 ml ONCE ONCE IV 11/24/21 10:45 11/24/21 10:46 DC 11/24/21 11:31 80 ML Sodium Chloride 1,000 ml @ STK-MED ONCE .ROUTE 11/24/21 10:07 11/24/21 10:09 DC 11/24/21 10:13 1,000 MLS/HR Vital Signs/I&O 11/24/21 09:45 Temp 37.0 Pulse 97 Resp 18 B/P (MAP) 116/75 (89) Pulse Ox 96 O2 Delivery Room Air Capillary Refill : Blood Pressure Mean: 89 Departure Communication (Admissions) Family Conversation NAME: KATHERINE SCHWARTZ [facility] REC#: [id number] PT STATUS: REG ER : 1975 PHYSICIAN: JORGE GONZALEZ APRN ADMIT DATE: 11/24/21/ER Draft Date of Exam:11/24/21 CT ANGIO CHEST W PROCEDURE: CT angiography of the chest with contrast. TECHNIQUE: Multiple contiguous axial images were obtained through the chest after uneventful bolus administration of intravenous contrast. 3D reconstructed CTA MIP acquisitions were also performed. Auto Exposure Controls were utilized during the CT exam to meet ALARA standards for radiation dose reduction. INDICATION: Shortness of air. COVID positive patient. COMPARISON: 11/18/2012. FINDINGS: There is no intraluminal filling defect within the pulmonary arteries to the first subsegmental division. Thoracic aorta is suboptimally opacified by the contrast bolus, but appears to be normal in course and caliber. By NASCET criteria, there is no focal significant stenosis. There is no evidence of dissection or aneurysm. Heart size is within normal limits. There is no large pericardial effusion. Several mildly prominent bilateral hilar lymph nodes are noted. Largest is seen on the right and measures approximately 1.7 x 1.2 cm. No abnormal axillary adenopathy is seen. Evaluation of the lung waldron demonstrates patchy and confluent ground-glass densities with associated septal thickening involving the posterior margins of the bilateral lower lobes. There is also scattered less prominent involvement of the bilateral upper and right middle lobe as well. Pulmonary nodule may be obscured. 9 x 6 mm subpleural micronodule is identified associated with the lateral margins of the major fissure on the left (image 66, series 3). This, however, is stable compared to 11/18/2012. There is no large effusion or pneumothorax. Osseous structures show no acute abnormalities. Included portions of the upper abdomen show partially visualized asymmetric moderate left-sided hydronephrosis. This was present previously, but has progressed. IMPRESSION: 1. No acute pulmonary embolus. 2. Scattered patchy and confluent infiltrate as above. Correlation with COVID-19 status is recommended. 3. Interval progression of left-sided hydronephrosis. Dictated on workstation # [id number] Dict: 11/24/21 1217 Trans: 11/24/21 1225 [id number] Interpreted by: ZAFAR NORIEGA MD Electronically signed by: NAME: KATHERINE SCHWARTZ [facility] REC#: [id number] PT STATUS: REG ER : 1975 PHYSICIAN: ALEJANDRO LYONS MD ADMIT DATE: 11/24/21/ER Draft Date of Exam:11/24/21 CHEST 1 VIEW, AP/PA ONLY INDICATION: Fever with nausea and body aches and headache. TIME OF EXAM: 10:28 AM Correlation is made with prior chest 02/07/2017. FINDINGS: Heart size normal. There is some probable minimal peripheral based infiltrates in the mid lower lung waldron bilaterally suggestive of pneumonia. No effusion or pneumothorax is detected. IMPRESSION: Minimal patchy bilateral infiltrates consistent with pneumonia. Dictated on workstation # [id number] Dict: 11/24/21 1029 Trans: 11/24/21 1031 [id number] Interpreted by: ELKE OWENS MD Electronically signed by: Impression Primary Impression: COVID-19 Disposition: 01 HOME, SELF-CARE Condition: Stable Departure-Patient Inst. Decision time for Depature: 11:04 Referrals: ÁLVARO HOBSON MD (PCP/Family) Primary Care Physician Patient Instructions: COVID-19 Overview Add. Discharge Instructions: 1. Tylenol and ibuprofen for body aches fevers chills. Nausea medication as directed. Return to ER for any worsening. Your liver enzymes were slightly elevated which warrants follow-up with primary care to be rechecked in a week or 2. This is likely just an effect of the Covid infection. Return to ER for any concerns. Try to obtain a pulse oximeter and if your oxygen drops consistently below 90% then you should return to the emergency room. All discharge instructions reviewed with patient and/or family. Voiced understanding. Scripts Ondansetron (Ondansetron Odt) 8 Mg Tab.rapdis 8 MG PO Q6H PRN for NAUSEA/VOMITING, #14 TAB Prov: JORGE GONZALEZ HARVESTER OPERATOR 11/24/21 JORGE GONZALEZ APRN Nov 24, 2021 10:34
[2021-11-24 10:36] LABS: CREATININE SERUM 0.65 MG/DL (0.60-1.30)
[2021-11-24] MEDS ORDERED: HOLD METFORMIN - RECEIVED CONTRAST 20 ML VIAL IV SCH (10:45)
[2021-11-24] MEDS ORDERED: IOHEXOL 350 MG/ML 100 ML (OMNIPAQUE 350) VIAL IV ONE (10:45)
[2021-11-24] MEDS ORDERED: NS 100 ML (IVPB) BAG IV ONE (10:45)
[2021-11-24 10:51] LABS: BILIRUBIN,URINE NEGATIVE (NEGATIVE); CLARITY,URINE SL CLOUDY; GLUCOSE, URINE (UA) NEGATIVE (NEGATIVE); KETONES,URINE NEGATIVE (NEGATIVE); LEUKOCYTE ESTERASE ,URINE NEGATIVE (NEGATIVE); NITRITE,URINE NEGATIVE (NEGATIVE); PROTEIN,URINE NEGATIVE (NEGATIVE)
[2021-11-24] MEDS ORDERED: KETOROLAC 30 MG/ML VIAL IVP ONE (11:00)
[2021-11-24] MEDS ORDERED: ONDANSETRON 4 MG/2 ML (SDV) Z0FRAN IVP ONE (11:00)
[2021-11-24 11:02] LABS: BACTERIA,URINE TRACE /HPF; COLOR,URINE YELLOW
[2021-11-24] MEDS ORDERED: ONDA8TAB13 PO (11:05)
--- NOTE | 2021-11-24 12:26 | Diagnostic Imaging Report ---
PROCEDURE: CT angiography of the chest with contrast. TECHNIQUE: Multiple contiguous axial images were obtained through the chest after uneventful bolus administration of intravenous contrast. 3D reconstructed CTA MIP acquisitions were also performed. Auto Exposure Controls were utilized during the CT exam to meet ALARA standards for radiation dose reduction. INDICATION: Shortness of air. COVID positive patient. COMPARISON: 11/18/2012. FINDINGS: There is no intraluminal filling defect within the pulmonary arteries to the first subsegmental division. Thoracic aorta is suboptimally opacified by the contrast bolus, but appears to be normal in course and caliber. By NASCET criteria, there is no focal significant stenosis. There is no evidence of dissection or aneurysm. Heart size is within normal limits. There is no large pericardial effusion. Several mildly prominent bilateral hilar lymph nodes are noted. Largest is seen on the right and measures approximately 1.7 x 1.2 cm. No abnormal axillary adenopathy is seen. Evaluation of the lung waldron demonstrates patchy and confluent ground-glass densities with associated septal thickening involving the posterior margins of the bilateral lower lobes. There is also scattered less prominent involvement of the bilateral upper and right middle lobe as well. Pulmonary nodule may be obscured. 9 x 6 mm subpleural micronodule is identified associated with the lateral margins of the major fissure on the left (image 66, series 3). This, however, is stable compared to 11/18/2012. There is no large effusion or pneumothorax. Osseous structures show no acute abnormalities. Included portions of the upper abdomen show partially visualized asymmetric moderate left-sided hydronephrosis. This was present previously, but has progressed. IMPRESSION: 1. No acute pulmonary embolus. 2. Scattered patchy and confluent infiltrate as above. Correlation with COVID-19 status is recommended. 3. Interval progression of left-sided hydronephrosis. Dictated by: Dictated on workstation # [id number]
[2021-11-24] MEDS ORDERED: AZIT250T12 PO (12:41)
[2021-11-24] MEDS ORDERED: PRD20T PO (12:41)
[2021-11-24 12:52] VITALS: BP 117/78
== END 2021-11-24 12:53 | disposition home or self-care (01) ==
LOC: EDUNIT# 09:34 → ER 09:36
DX: U07.1 COVID-19 (principal); F41.9 Anxiety disorder, unspecified; F32.9 Major depressive disorder, single episode, unspecified; Z79.899 Other long term (current) drug therapy
CPT/HCPCS: 36415; 71045; 71275; 80053; 81000; 85025; 85379; 86141

== ENCOUNTER → 2022-05-08 | Outpatient (CLI) | payer OTHER ==
[~2022-05-08] MED LIST changes: +AZIT250T12 PO
--- NOTE | 2022-05-08 14:58 | Diagnostic Imaging Report ---
PROCEDURE: Pelvic comp/transvaginal sonogram. TECHNIQUE: Complete transabdominal and transvaginal pelvic ultrasound was performed. In addition, limited pelvic Doppler was performed. INDICATION: Abnormal uterine bleeding for 3 to 4 months. Uterus is anteverted measuring 6.7 x 3.9 x 4.9 cm. There is a probable fibroid in the anterior uterus measuring 2.9 x 1.9 x 1.6 cm. Endometrium is 9 mm in thickness. Right ovary measures 1.4 x 0.9 x 2.3 cm and the left ovary measures 2.1 x 1.9 x 2.8 cm. Left ovary contains an approximately 10 mm follicle. Both ovaries show blood flow. There is a small amount of free fluid in the posterior cul-de-sac. IMPRESSION: 1. Uterine fibroid. No other significant abnormality is detected. Dictated by: Dictated on workstation # [id number]
== END ==
LOC: RAD 12:45
PROVIDERS: ATTEND Family Medicine
DX: D25.9 Leiomyoma of uterus, unspecified (principal)
CPT/HCPCS: 76830; 76856

== ENCOUNTER → 2023-06-08 | Outpatient (CLI) | payer OTHER ==
--- NOTE | 2023-06-08 12:42 | Diagnostic Imaging Report ---
INDICATION: Routine screening. Comparison is made with prior mammogram from 08/05/2021 and 02/25/2018. 2-D and 3-D bilateral screening mammography was performed with CAD. Both breasts are heterogeneously dense, limiting the sensitivity of mammography. The parenchymal pattern is stable. No mass or malignant-appearing microcalcifications are seen. Axillae are unremarkable. IMPRESSION: No mammographic features suspicious for malignancy are identified. ACR BI-RADS Category 1: Negative. Result letter will be mailed to the patient. Note: At least 10% of breast cancer is not imaged by mammography. BI-RADS Category 1 Dictated by: Dictated on workstation # [id number]
== END ==
LOC: RAD 07:31
PROVIDERS: ATTEND Family Medicine
DX: Z12.31 Encounter for screening mammogram for malignant neoplasm of breast (principal)
CPT/HCPCS: 77063; 77067